=== PATIENT | female | born 1980 | race Caucasian/White ===

== ENCOUNTER 2020-12-10 02:47 | Emergency (ER) | payer SELFPAY ==
[2020-12-10] MEDS ORDERED: ONDANSETRON 4 MG/2 ML VIAL ONE (04:00)
[2020-12-10] MEDS ORDERED: MORPHINE 4 MG/ML SYR ONE (04:00)
[2020-12-10 04:25] LABS: Absolute Lymphocytes (CBC) 2.1 K/uL (0.7-4.9); Basophils % 0.8 % (0-1.3); Hematocrit 35.5 % (36.0-45.0); Lymphocytes % 18.9 % (15.3-44.8); MPV 8.7 fL (7.6-11.3); RBC Red Blood Cell Count 3.91 M/uL (3.86-4.86)
[2020-12-10 04:38] LABS: ALT/SGPT 22 U/L (12-78); Albumin 3.5 g/dL (3.4-5.0); Alkaline Phosphatase 77 U/L (45-117); BUN Blood Urea Nitrogen 15 mg/dL (7-18); Bicarbonate 26 mmol/L (21-32); Bilirubin Direct < 0.1 mg/dL (0-0.2); Bilirubin Total 0.1 mg/dL (0.2-1.0); Glucose Level 132 mg/dL (74-106); Lipase 82 U/L (73-393); Protein, Total 6.8 g/dL (6.4-8.2); Sodium Level 140 mmol/L (136-145)
[2020-12-10] MEDS ORDERED: HYDROMORPHONE HCL 2 MG/ML inj ONE (04:41)
[2020-12-10 04:44] LABS: AST/SGOT 13 U/L (15-37); Potassium 3.9 mmol/L (3.5-5.1)
[2020-12-10 04:56] LABS: Blood Morphology Comment NOT SEEN (NOT SEEN); Platelet Estimate ADEQ; White Blood Cell Scan OK (OK)
--- NOTE | 2020-12-10 05:03 | EDPHYS ---
Physician Documentation [facility] Name: Ryanne Lockwood Age: 40 yrs Sex: Female : 1980 Arrival Date: 12/10/2020 Time: 02:52 Bed 25 Private MD: ED Physician Kristine Cortez HPI: 12/10 03:31 This 40 yrs old Female presents to ER via Ambulatory with complaints of Flank ma2 Pain, Chest Pain > 30 y/o. 03:31 The patient complains of pain in the . Onset: The symptoms/episode began/occurred ma2 gradually, 1 day(s) ago. Associated signs and symptoms: Pertinent negatives: fever, hematuria, pain radiating to the lower extremities. Severity of pain: At its worst the pain was moderate in the emergency department the pain is unchanged. The patient has not experienced similar symptoms in the past. ruq abd pain constant severe. 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 - Social history:: Smoking status: Patient reports the use of cigarette tobacco products, smokes one-half pack cigarettes per day, Patient uses Patient/guardian denies using alcohol, street drugs, The patient lives with family. - Family history:: not pertinent. ROS: 03:31 Constitutional: Negative for fever, chills, and weight loss. ma2 03:31 All other systems are negative. Exam: 03:31 Constitutional: This is a well developed, well nourished patient who is awake, alert, ma2 and in no acute distress. Head/Face: Normocephalic, atraumatic. Eyes: Pupils equal round and reactive to light, extra-ocular motions intact. Lids and lashes normal. Conjunctiva and sclera are non-icteric and not injected. Cornea within normal limits. Periorbital areas with no swelling, redness, or edema. ENT: Nares patent. No nasal discharge, no septal abnormalities noted. Tympanic membranes are normal and external auditory canals are clear. Oropharynx with no redness, swelling, or masses, exudates, or evidence of obstruction, uvula midline. Mucous membranes moist. Neck: Trachea midline, no thyromegaly or masses palpated, and no cervical lymphadenopathy. Supple, full range of motion without nuchal rigidity, or vertebral point tenderness. No Meningismus. Chest/axilla: Normal chest wall appearance and motion. Nontender with no deformity. No lesions are appreciated. Cardiovascular: Regular rate and rhythm with a normal S1 and S2. No gallops, murmurs, or rubs. Normal PMI, no JVD. No pulse deficits. Respiratory: Lungs have equal breath sounds bilaterally, clear to auscultation and percussion. No rales, rhonchi or wheezes noted. No increased work of breathing, no retractions or nasal flaring. Back: No spinal tenderness. No costovertebral tenderness. Full range of motion. Skin: Warm, dry with normal turgor. Normal color with no rashes, no lesions, and no evidence of cellulitis. MS/ Extremity: Pulses equal, no cyanosis. Neurovascular intact. Full, normal range of motion. Neuro: Awake and alert, GCS 15, oriented to person, place, time, and situation. Cranial nerves II-XII grossly intact. Motor strength 5/5 in all extremities. Sensory grossly intact. Cerebellar exam normal. Normal gait. 03:31 Abdomen/GI: Inspection: abdomen appears normal, Bowel sounds: normal, Palpation: moderate abdominal tenderness, in the right upper quadrant, no appreciated organomegaly. Vital Signs: 02:54 BP 154 / 92 RA Sitting (auto/lg); Pulse 63 MON; Resp 20 S; Temp 97.6(O); Pulse Ox 100% bs2 on R/A; Weight 102.06 kg; Height 5 ft. 2 in. (157.48 cm); Pain 10/10; 03:46 BP 131 / 77; Pulse 64; Resp 18; Pulse Ox 100% on R/A; ms4 04:20 BP 146 / 77; Pulse 70; Resp 18; Pulse Ox 100% on R/A; Pain 10/10; ms4 05:20 BP 135 / 90; Pulse 78; Resp 18; Temp 97.6; Pulse Ox 96% on R/A; cc4 02:54 Body Mass Index 41.15 (102.06 kg, 157.48 cm) bs2 MDM: 03:06 Patient medically screened. ma2 03:31 Differential diagnosis: nephrolithiasis, UTI, pancreatitis, cholelithiasis. ma2 04:59 Data reviewed: vital signs, nurses notes. Counseling: I had a detailed discussion with mahendra the patient and/or guardian regarding: the historical points, exam findings, and any diagnostic results supporting the discharge/admit diagnosis, the presence of at least one elevated blood pressure reading (>120/80) during this emergency department visit, the need for outpatient follow up. Response to treatment: the patient's symptoms have resolved after treatment. ED course: Patient symptoms has resolved, vital signs within normal limits, did not develop any fever in the ER, her labs unremarkable except white count of 11,000, however no other component of SIRS. Ultrasound is done I reviewed the images and discussed with the technician chemical cleaning, she advised that there is gallbladder stone, no sonographic May, gallbladder wall is not thickened, no pericystic fluid, CBD is not dilated, I reviewed the pictures and agree with these findings. Images were sent to the radiologist, however report will not be available until the morning, given patient symptom has resolved at this point. Will discharge with diagnosis of cholelithiasis, with general surgery referral, pain control and antiemetic. I gave return precautions to return to ER anytime, and follow-up with PCP either way in the morning.. 12/10 03:14 Order name: Basic Metabolic Panel; Complete Time: 04:45 pr2 12/10 03:14 Order name: CBC with Diff; Complete Time: 04:59 pr2 12/10 03:14 Order name: Hepatic Function; Complete Time: 04:45 ma2 12/10 03:14 Order name: Lipase; Complete Time: 04:45 ma2 12/10 03:14 Order name: US Abdomen Limited pr2 12/10 04:35 Order name: CBC Smear Scan; Complete Time: 04:59 EDMS 12/10 03:14 Order name: IV Saline Lock; Complete Time: 03:48 ma2 12/10 03:14 Order name: Labs collected and sent; Complete Time: 03:48 ma2 12/10 03:14 Order name: Urine Dipstick-Ancillary (obtain specimen) [facility] 12/10 03:14 Order name: Urine Test (obtain specimen) ma2 Administered Medications: 03:37 Drug: morphine 4 mg Route: IVP; Site: left forearm; ms4 05:07 Follow up: Response: No adverse reaction; Pain is unchanged, physician notified kc4 03:37 Drug: Zofran (Ondansetron) 4 mg Route: IVP; Site: left forearm; ms4 05:06 Follow up: Response: No adverse reaction kc4 04:20 Drug: Dilaudid (HYDROmorphone) 1 mg Route: IVP; Site: left forearm; ms4 05:06 Follow up: Response: No adverse reaction kc4 05:20 Follow up: Response: No adverse reaction; Pain is decreased cc4 Disposition Summary: 12/10/20 05:02 Discharge Ordered Location: Home ma2 Condition: Stable ma2 Diagnosis - Other cholelithiasis without obstruction ma2 Followup: ma2 - With: - When: Tomorrow - Reason: If symptoms return, Continuance of care Discharge Instructions: - Discharge Summary Sheet ma2 - Cholelithiasis ma2 - Cholelithiasis, [id number] ma2 Forms: - Medication Reconciliation Form ma2 - Thank You Letter ma2 - Antibiotic Education ma2 - Prescription Opioid Use ma2 Prescriptions: - Zofran 4 mg Oral Tablet - take 1 tablet by ORAL route every 12 hours As needed; 20 tablet; Refills: 0, ma2 Product Selection Permitted - Diclofenac Sodium 75 mg Oral Tablet Sustained Release - take 1 tablet by ORAL route 2 times per day; 30 tablet; Refills: 0, Product ma2 Selection Permitted Signatures: Dispatcher [employer] Glen Liao PA PA [id number] Kristine Cortez MD MD ma2 Nuris Gaitan RN RN bs2 Malinda Parada RN RN ms4 Teressa Hancock4 Smita Lake RN cc4
--- NOTE | 2020-12-10 05:03 | ER ---
Nurse's Notes [facility] Name: Ryanne Lockwood Age: 40 yrs Sex: Female : 1980 Arrival Date: 12/10/2020 Time: 02:52 Bed 25 Private MD: Diagnosis: Other cholelithiasis without obstruction Presentation: 12/10 02:54 Chief complaint: Patient states: RUQ abd pain and chest pain, started 1 hr ago. bs2 Coronavirus screen: At this time, the client does not indicate any symptoms associated with coronavirus-19. Ebola Screen: No symptoms or risks identified at this time. Initial Sepsis Screen: Does the patient meet any 2 criteria? No. Patient's initial sepsis screen is negative. Does the patient have a suspected source of infection? No. Patient's initial sepsis screen is negative. Risk Assessment: Do you want to hurt yourself or someone else? Patient reports no desire to harm self or others. Onset of symptoms was December 10, 2020. 02:54 Method Of Arrival: Ambulatory bs2 02:54 Acuity: HUI 3 bs2 Triage Assessment: 02:58 General: Appears in no apparent distress. uncomfortable, obese, well groomed, well bs2 developed, well nourished, Behavior is calm, cooperative, appropriate for age. Pain: Complains of pain in right lateral anterior chest Pain currently is 10 out of 10 on a pain scale. Pain began suddenly. Cardiovascular: Chest pain is described as diffuse, "worst pain of my life". 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 - Social history:: Smoking status: Patient reports the use of cigarette tobacco products, smokes one-half pack cigarettes per day, Patient uses Patient/guardian denies using alcohol, street drugs, The patient lives with family. - Family history:: not pertinent. Screenin:46 Abuse screen: Denies threats or abuse. Denies injuries from another. Nutritional ms4 screening: No deficits noted. Tuberculosis screening: No symptoms or risk factors identified. Fall Risk None identified. Assessment: 03:45 Reassessment: Patient appears in no apparent distress at this time. No changes from ms4 previously documented assessment. Patient and/or family updated on plan of care and expected duration. Pain level reassessed. Patient is alert, oriented x 3, equal unlabored respirations, skin warm/dry/pink. General: Appears in no apparent distress. Behavior is calm, cooperative. Pain: Complains of pain in right upper quadrant and chest and right lateral anterior chest Pain does not radiate. Neuro: No deficits noted. Cardiovascular: No deficits noted. Respiratory: No deficits noted. GI: Reports upper abdominal pain, nausea. 04:50 Reassessment: Patient appears in no apparent distress at this time. No changes from ms4 previously documented assessment. Patient and/or family updated on plan of care and expected duration. Pain level reassessed. Patient is alert, oriented x 3, equal unlabored respirations, skin warm/dry/pink. Reassessment: patient sleeping at this time. report given to jayme alfaro. Vital Signs: 02:54 BP 154 / 92 RA Sitting (auto/lg); Pulse 63 MON; Resp 20 S; Temp 97.6(O); Pulse Ox 100% bs2 on R/A; Weight 102.06 kg; Height 5 ft. 2 in. (157.48 cm); Pain 10/10; 03:46 BP 131 / 77; Pulse 64; Resp 18; Pulse Ox 100% on R/A; ms4 04:20 BP 146 / 77; Pulse 70; Resp 18; Pulse Ox 100% on R/A; Pain 10/10; ms4 05:20 BP 135 / 90; Pulse 78; Resp 18; Temp 97.6; Pulse Ox 96% on R/A; cc4 02:54 Body Mass Index 41.15 (102.06 kg, 157.48 cm) bs2 ED Course: 02:52 Patient arrived in ED. bp1 02:58 Triage completed. bs2 02:58 Arm band placed on left wrist. bs2 03:06 Kristine Cortez MD is Attending Physician. ma2 03:46 No provider procedures requiring assistance completed. Inserted saline lock: 22 gauge ms4 in left forearm, using aseptic technique. Blood collected. Patient maintains SpO2 saturation greater than 95% on room air. 03:48 US Abdomen Limited In Process Unspecified. EDMS 04:55 Smita Lake, RN is Primary Nurse. cc4 05:02 Garret Morton MD is Referral Physician. ma2 05:20 Patient has correct armband on for positive identification. Bed in low position. Call cc4 light in reach. Side rails up X 1. Pulse ox on. NIBP on. 05:20 IV discontinued, intact, bleeding controlled, No redness/swelling at site. Pressure cc4 dressing applied. Administered Medications: 03:37 Drug: morphine 4 mg Route: IVP; Site: left forearm; ms4 05:07 Follow up: Response: No adverse reaction; Pain is unchanged, physician notified kc4 03:37 Drug: Zofran (Ondansetron) 4 mg Route: IVP; Site: left forearm; ms4 05:06 Follow up: Response: No adverse reaction kc4 04:20 Drug: Dilaudid (HYDROmorphone) 1 mg Route: IVP; Site: left forearm; ms4 05:06 Follow up: Response: No adverse reaction kc4 05:20 Follow up: Response: No adverse reaction; Pain is decreased cc4 Outcome: 05:02 Discharge ordered by . ma2 05:20 Discharged to home with family. cc4 05:20 Condition: improved 05:20 Discharge instructions given to patient, family, Instructed on discharge instructions, follow up and referral plans. medication usage, Demonstrated understanding of instructions, follow-up care, medications, Prescriptions given X 2. 05:49 Patient left the ED. cc4 Signatures: Dispatcher [employer] EDKS Kristine Cortez MD MD ma2 Beatriz Guzman Bridget, RN RN bs2 Malinda Parada RN RN ms4 Teressa Hancock kc4 Smita Lake, RN RN cc4
[2020-12-10 05:59] VITALS: TEMP 97.6
[2020-12-10 06:12] VITALS: BP 135/90; O2SAT 96
--- NOTE | 2020-12-10 08:34 | RAD REPORT ---
EXAM DESCRIPTION: US - Abdomen Exam Limited - 12/10/2020 3:48 am CLINICAL HISTORY: ruq abd pain Abdominal pain COMPARISON: No comparisons FINDINGS: The gallbladder demonstrates several gallstones in the gallbladder. No pericholecystic flu id or gallbladder wall thickening. The common bile duct is normal measuring 3 mm. The liver demonstrates no findings of intrahepatic biliary dilatation. IMPRESSION: Cholelithiasis.
== END 2020-12-10 05:49 | disposition home or self-care (01) ==
LOC: ER 02:47
DX: K80.80 Other cholelithiasis without obstruction (principal); F17.210 Nicotine dependence, cigarettes, uncomplicated; Z88.0 Allergy status to penicillin
CPT/HCPCS: 36415; 76705; 80048; 80076; 83690; 85025; 93005; 96374; 96375; 99284; J1170; J2405

== ENCOUNTER 2020-12-20 14:41 | Emergency (ER) | payer SELFPAY ==
[2020-12-20] MEDS ORDERED: MORPHINE 4 MG/ML SYR ONE (16:06)
[2020-12-20] MEDS ORDERED: ONDANSETRON 4 MG/2 ML VIAL ONE (16:06)
--- NOTE | 2020-12-20 16:10 | RAD REPORT ---
EXAM DESCRIPTION: CT - Abdomen Pelvis W Contrast - 12/20/2020 3:56 pm CLINICAL HISTORY: Abdominal pain COMPARISON: none. TECHNIQUE: Computed axial tomography of the abdomen pelvis was obtained. 100 cc Isovue-300 was admin istered intravenously. Oral contrast was not requested which limits evaluation of bowel. All CT scans are performed using dose optimization technique as appropriate and may include automated exposure control or mA/KV adjustment according to patient size. FINDINGS: 3 x 2 centimeter fluid collection within the gallbladder fossa. Cholecystectomy Stranding within the anterior subcutaneous fat periumbilical region The liver, spleen, pancreas, adrenal and kidneys appear unremarkable. There is no evidence of diverticulitis. Normal appendix A few areas of subsegmental atelectasis within the lung bases 2 centimeter right and left ovarian cyst without significant free fluid IMPRESSION: 3 x 2 centimeter fluid collection within the gallbladder fossa may represent a small hem atoma or biloma. Stranding within the anterior subcutaneous fat periumbilical region indicative of inflammation
[2020-12-20] MEDS ORDERED: Levofloxacin 750mg IV 750 MG/150 ML BAG IV ONE (17:20)
[2020-12-20 17:30] LABS: Absolute Lymphocytes (CBC) 1.8 K/uL (0.7-4.9); Basophils % 0.6 % (0-1.3); Hematocrit 32.8 % (36.0-45.0); Lymphocytes % 19.1 % (15.3-44.8); MPV 7.1 fL (7.6-11.3); RBC Red Blood Cell Count 3.61 M/uL (3.86-4.86)
[2020-12-20 17:43] LABS: BUN Blood Urea Nitrogen 8 mg/dL (7-18); Bicarbonate 26 mmol/L (21-32); Glucose Level 92 mg/dL (74-106); Potassium 3.8 mmol/L (3.5-5.1); Sodium Level 139 mmol/L (136-145)
--- NOTE | 2020-12-20 19:44 | ER ---
Nurse's Notes [facility] Name: Ryanne Lockwood Age: 40 yrs Sex: Female : 1980 Arrival Date: 12/20/2020 Time: 14:45 Bed 20 Private MD: Diagnosis: Surgical site pain -purulent fluid drainage and periumbilical pain Presentation: 12/20 14:49 Chief complaint: Patient states: Had a cholecystectomy on 12/11/[address] Morton jl7 Noticed abdominal swelling and pus draining from my belly button yesterday. Denies fever, N/V/D. Coronavirus screen: At this time, the client does not indicate any symptoms associated with coronavirus-19. Ebola Screen: No symptoms or risks identified at this time. Initial Sepsis Screen: Does the patient meet any 2 criteria? No. Patient's initial sepsis screen is negative. Does the patient have a suspected source of infection? No. Patient's initial sepsis screen is negative. Risk Assessment: Do you want to hurt yourself or someone else? Patient reports no desire to harm self or others. Onset of symptoms was December 19, 2020. 14:49 Method Of Arrival: Ambulatory [facility] 14:49 Acuity: UHI 3 jl7 Triage Assessment: 14:51 General: Appears in no apparent distress. uncomfortable, Behavior is calm, cooperative, jl7 appropriate for age. Pain: Complains of pain in abdomen Pain currently is 4 out of 10 on a pain scale. GI: Patient currently denies constipation, diarrhea, nausea, vomiting. 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 - Social history:: Smoking status: Patient reports the use of cigarette tobacco products, smokes one-half pack cigarettes per day. Screenin:00 Abuse screen: Denies threats or abuse. Denies injuries from another. Nutritional bp screening: No deficits noted. Tuberculosis screening: No symptoms or risk factors identified. Fall Risk None identified. Assessment: 15:00 General: SEE TRIAGE NOTE. bp 16:00 Reassessment: No changes from previously documented assessment. Patient and/or family bp updated on plan of care and expected duration. Pain level reassessed. Patient is alert, oriented x 3, equal unlabored respirations, skin warm/dry/pink. 18:00 Reassessment: No changes from previously documented assessment. Patient and/or family bp updated on plan of care and expected duration. Pain level reassessed. PROVIDER AT B/S. 19:30 Reassessment: Patient appears in no apparent distress at this time. Abdominal cc4 incisional lines approx. 1 cm in length with staple intact x 3/redness noted no drainage; approx 1 cm incisional line of umbilicus intact x 1 satple with redness \T\ no drainage noted APT; each incisional lines dressed with triple antibiotic ointment \T\ folded 4 x 4 gauze, jamar. well; voices no complaints; VSS. 19:30 GI: Bowel sounds present X 4 quads. cc4 19:30 GI: Abd is soft X 4 quads. cc4 Vital Signs: 14:49 BP 133 / 84; Pulse 86; Resp 17; Temp 98.1; Pulse Ox 100% ; Weight 106.59 kg; Height 5 jl7 ft. 3 in. (160.02 cm); Pain 4/10; 16:00 BP 127 / 79; Pulse 82; Resp 16; Pulse Ox 100% ; bp 17:00 BP 124 / 79; Pulse 82; Resp 17; Pulse Ox 100% ; bp 18:00 BP 111 / 65; Pulse 85; Resp 16; Pulse Ox 100% ; bp 19:30 BP 131 / 81; Pulse 80; Resp 20; Temp 97.9; Pulse Ox 100% ; cc4 14:49 Body Mass Index 41.63 (106.59 kg, 160.02 cm) jl7 ED Course: 14:45 Patient arrived in ED. as 14:51 Triage completed. jl7 14:51 Arm band placed on right wrist. jl7 14:55 Mason Werner, MENDEL is Primary Nurse. bp 14:56 Andi Causey MD is Attending Physician. kdr 15:00 Patient has correct armband on for positive identification. Bed in low position. Call bp light in reach. Side rails up X2. 15:41 Inserted saline lock: 22 gauge in right forearm, using aseptic technique. em1 15:55 CT Abd/Pelvis - IV Contrast Only In Process Unspecified. EDMS 19:30 IV discontinued, intact, bleeding controlled, No redness/swelling at site. Pressure cc4 dressing applied. 19:43 Garret Morton MD is Referral Physician. kdr 20:05 Staple removal x 3 of umbilicus incisional line. cc4 Administered Medications: 15:30 Drug: morphine 4 mg Route: IVP; Site: right forearm; bp 17:14 Follow up: Response: No adverse reaction bp 19:30 Follow up: Response: No adverse reaction; Pain is decreased cc4 15:30 Drug: Zofran (Ondansetron) 4 mg Route: IVP; Site: right forearm; bp 17:14 Follow up: Response: No adverse reaction bp 19:30 Follow up: Response: No adverse reaction cc4 17:13 Drug: LevaQUIN (levofloxacin) 750 mg Route: IVPB; Site: right forearm; bp 19:30 Follow up: Response: No adverse reaction; IV Intake: 100ml cc4 Intake: 19:30 IV: 100ml; Total: 100ml. cc4 Outcome: 19:30 Discharged to home ambulatory. cc4 19:30 Condition: good 19:30 Discharge instructions given to patient, Instructed on discharge instructions, follow up and referral plans. medication usage, Demonstrated understanding of instructions, follow-up care, medications, Prescriptions given X 2. 19:44 Discharge ordered by . kdr 20:10 Patient left the ED. cc4 Signatures: Dispatcher [employer] EDMS Andi Causey MD MD kdr Martinez, Amelia as Martinez, Eric em1 Farnaz Nam RN RN jl7 Mason Werner RN RN Smita Sparrow RN RN cc4
--- NOTE | 2020-12-20 19:45 | EDPHYS ---
Physician Documentation [facility] Name: Ryanne Lockwood Age: 40 yrs Sex: Female : 1980 Arrival Date: 12/20/2020 Time: 14:45 Bed 20 Private MD: ED Physician Andi Causey HPI: 12/20 16:42 This 40 yrs old Female presents to ER via Ambulatory with complaints of kdr Abdominal Swelling, umbilical discharge. 16:42 The patient presents with abdominal pain in the epigastric area, in the right upper kdr quadrant, abdominal distention. Onset: The symptoms/episode began/occurred 2 day(s) ago. The symptoms do not radiate. Associated signs and symptoms: none. The symptoms are described as achy, crampy, dull, vague. Modifying factors: The symptoms are alleviated by remaining still, the symptoms are aggravated by coughing, breathing deeply. Patient had a cholecystectomy on the eighth of this month. The surgeon was Dr. Morton. Yesterday she noted some purulent drainage from her umbilicus. She also felt as if her abdomen was more distended. She denies any fever chills nausea or vomiting. 19:46 Severity of pain: At its worst the pain was mild. The patient has not experienced kdr similar symptoms in the past. 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 - Social history:: Smoking status: Patient reports the use of cigarette tobacco products, smokes one-half pack cigarettes per day. ROS: 19:46 Constitutional: Negative for fever, chills, and weight loss, Eyes: Negative for injury, kdr pain, redness, and discharge, ENT: Negative for injury, pain, and discharge, Neck: Negative for injury, pain, and swelling, Cardiovascular: Negative for chest pain, palpitations, and edema, Respiratory: Negative for shortness of breath, cough, wheezing, and pleuritic chest pain, Back: Negative for injury and pain, : Negative for injury, bleeding, discharge, and swelling, MS/Extremity: Negative for injury and deformity, Skin: Negative for injury, rash, and discoloration, Neuro: Negative for headache, weakness, numbness, tingling, and seizure activity. Psych: Negative for depression, anxiety, suicide ideation, homicidal ideation, and hallucinations, Allergy/Immunology: Negative for hives, rash, and allergies, Endocrine: Negative for neck swelling, polydipsia, polyuria, polyphagia, and marked weight changes, Hematologic/Lymphatic: Negative for swollen nodes, abnormal bleeding, and unusual bruising. 19:46 Abdomen/GI: Positive for abdominal pain, The pain is periumbilical and umbilical with a small amount of drainage prior to arrival from her umbilicus wound, Negative for nausea, vomiting, and diarrhea, abdominal cramps, abdominal distension, anorexia, dysphagia, hematemesis, black/tarry stool, rectal pain, rectal bleeding. Exam: 19:46 Constitutional: This is a well developed, well nourished patient who is awake, alert, kdr and in no acute distress. Head/Face: Normocephalic, atraumatic. Eyes: Pupils equal round and reactive to light, extra-ocular motions intact. Lids and lashes normal. Conjunctiva and sclera are non-icteric and not injected. Cornea within normal limits. Periorbital areas with no swelling, redness, or edema. Neck: Trachea midline, no thyromegaly or masses palpated, and no cervical lymphadenopathy. Supple, full range of motion without nuchal rigidity, or vertebral point tenderness. No Meningismus. Chest/axilla: Normal chest wall appearance and motion. Nontender with no deformity. No lesions are appreciated. Cardiovascular: Regular rate and rhythm with a normal S1 and S2. No gallops, murmurs, or rubs. Normal PMI, no JVD. No pulse deficits. Respiratory: Lungs have equal breath sounds bilaterally, clear to auscultation and percussion. No rales, rhonchi or wheezes noted. No increased work of breathing, no retractions or nasal flaring. Back: No spinal tenderness. No costovertebral tenderness. Full range of motion. Skin: Warm, dry with normal turgor. Normal color with no rashes, no lesions, and no evidence of cellulitis. MS/ Extremity: Pulses equal, no cyanosis. Neurovascular intact. Full, normal range of motion. Neuro: Awake and alert, GCS 15, oriented to person, place, time, and situation. Cranial nerves II-XII grossly intact. Motor strength 5/5 in all extremities. Sensory grossly intact. Cerebellar exam normal. Normal gait. Psych: Awake, alert, with orientation to person, place and time. Behavior, mood, and affect are within normal limits. 19:46 Abdomen/GI: Inspection: obese Patient has multiple puncture sites from the cholecystectomy. The umbilical site is slightly red but minimal erythema and drainage. I was unable to express any purulent drainage from the wound. Vital Signs: 14:49 BP 133 / 84; Pulse 86; Resp 17; Temp 98.1; Pulse Ox 100% ; Weight 106.59 kg; Height 5 jl7 ft. 3 in. (160.02 cm); Pain 4/10; 16:00 BP 127 / 79; Pulse 82; Resp 16; Pulse Ox 100% ; bp 17:00 BP 124 / 79; Pulse 82; Resp 17; Pulse Ox 100% ; bp 18:00 BP 111 / 65; Pulse 85; Resp 16; Pulse Ox 100% ; bp 19:30 BP 131 / 81; Pulse 80; Resp 20; Temp 97.9; Pulse Ox 100% ; cc4 14:49 Body Mass Index 41.63 (106.59 kg, 160.02 cm) jl7 MDM: 19:44 Patient medically screened. kdr 19:46 Data reviewed: vital signs, nurses notes, lab test result(s), radiologic studies. kdr Counseling: I had a detailed discussion with the patient and/or guardian regarding: the historical points, exam findings, and any diagnostic results supporting the discharge/admit diagnosis, lab results, radiology results, the need for outpatient follow up. Physician consultation: Garret Morton MD and will see patient in office, tomorrow. 12/20 16:39 Order name: CBC with Diff; Complete Time: 17:53 kdr 12/20 16:39 Order name: Chem 7; Complete Time: 17:53 kdr 12/20 15:16 Order name: CT Abd/Pelvis - IV Contrast Only; Complete Time: 16:39 kdr Administered Medications: 15:30 Drug: morphine 4 mg Route: IVP; Site: right forearm; bp 17:14 Follow up: Response: No adverse reaction bp 19:30 Follow up: Response: No adverse reaction; Pain is decreased cc4 15:30 Drug: Zofran (Ondansetron) 4 mg Route: IVP; Site: right forearm; bp 17:14 Follow up: Response: No adverse reaction bp 19:30 Follow up: Response: No adverse reaction cc4 17:13 Drug: LevaQUIN (levofloxacin) 750 mg Route: IVPB; Site: right forearm; bp 19:30 Follow up: Response: No adverse reaction; IV Intake: 100ml cc4 Disposition Summary: 12/20/20 19:44 Discharge Ordered Location: Home kdr Problem: an ongoing problem kdr Symptoms: have improved kdr Condition: Stable kdr Diagnosis - Surgical site pain -purulent fluid drainage and periumbilical pain kdr Followup: kdr - With: Garret Morton MD - When: Tomorrow - Reason: If symptoms return, Further diagnostic work-up, Recheck today's complaints, Continuance of care, Re-evaluation by your physician Discharge Instructions: - Discharge Summary Sheet kdr - Abdominal Pain, Adult, [id number] kdr - Wound Infection, [id number] kdr - Wound Closure Removal, Care After kdr - Sutures, Chris, or Adhesive Wound Closure, [id number] kdr Forms: - Medication Reconciliation Form kdr - Thank You Letter kdr - Antibiotic Education kdr - Prescription Opioid Use kdr Prescriptions: - Tramadol 50 mg Oral Tablet - take 1 tablet by ORAL route every 8 hours as needed; 12 tablet; Refills: 0, kdr Product Selection Permitted - Bactrim DS 800-160 mg Oral Tablet - take 1 tablet by ORAL route every 12 hours for 10 days; 20 tablet; Refills: 0, kdr Product Selection Permitted 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
[2020-12-20 20:18] VITALS: O2SAT 100
[2020-12-20 20:23] VITALS: BP 131/81; TEMP 97.9
== END 2020-12-20 20:10 | disposition home or self-care (01) ==
LOC: ER 14:41
DX: G89.18 Other acute postprocedural pain (principal); Z90.49 Acquired absence of other specified parts of digestive tract; F17.210 Nicotine dependence, cigarettes, uncomplicated; Z88.0 Allergy status to penicillin
CPT/HCPCS: 36415; 74177; 80048; 85025; 96374; 96375; 99284; J2405; Q9967

== ENCOUNTER 2022-10-31 11:08 | Emergency (ER) | payer OTHER, SELFPAY ==
--- OUTSIDE RECORDS SUMMARY | 2022-10-31 11:11 | XMS REPORT | Clinical Summary ---
:1980 Author Organization [facility] Address [address] [place] [id number] Care Team Providers Name Role Phone Unavailable Primary Care Provider Unavailable Allergies Not on File Medications Not on file Active Problems Not on file Social History Tobacco Use Types Packs/Day Years Used Date Smoking Tobacco: Never Assessed Sex Assigned at Date Recorded Not on file Last Filed Vital Signs Not on file Plan of Treatment Not on file Results Not on fileafter 10/31/2021
--- OUTSIDE RECORDS SUMMARY | 2022-10-31 11:12 | XMS REPORT | Continuity of Care Document ---
:[address] [facility] t Address [address] [facility] [address] [place] [address] Care Team Providers Name Role Phone Chicho Ramsay Attending Clinician Chicho ELLIS Attending Clinician Unavailable Jeannette Pimentel LCSW Attending Clinician [phone] This patient has no known problems. Allergies, Adverse Reactions, Alerts Allergy Allergy Status Severity Reaction(s) Onset Inactive Treating Comm ents Source Name Type Date Date Clinician Penicill Propensi Active Shortness of 2019-03 Univers in ty to Breath 2-14 ity of adverse 00:00: [place] reaction 00 [facility] PENICILL DRUG Active SOB 2019-03 Univers IN INGREDI 2-14 ity of 00:00: [address] NO KNOWN Drug Active Univers ALLERGIE Class ity of [facility] Social History Social Habit Start Date Stop Date Quantity Comments Source Exposure to Not sure [facility] SARS-CoV-2 (event) Medica l Branch Sex Assigned At [birth year] [facility] 00:00:00 00:00:00 MD [facility] Smoking Status Start Date Stop Date Source Unknown if ever smoked [facility] Medications Ordered Filled Start Stop Current Ordering Indication Dosage Frequency Signature Comments Components Source Medication Medication Date Date Medication? Clinician (SIG) Name Name doxycycline 2019-03 No 100mg 100 mg, U nivers hyclate 2-15 12-15 Oral, ity of (Vibramycin 07:30: 06[place]37 [place] capsule 00 :00 dose, Tue Medic al 100 mg 02/18/20 Branch at 0130, RADHA
Re ason for Anti-Infec tive: Empiric Therapy for Suspected Infection< br>Empiric Therapy Site: Pelvic
Duration of therapy: 7 days gentamicin 2019-03- No 240mg 240 mg, Un sandy injection 2-15 12-15 Intramuscu ity of 240 mg 07:30: 06:33 [place] 1 dose, Medical Tue Branch 02/18/20 at 0130, RADHA
Re ason for Anti-Infec tive: Empiric Therapy for Suspected Infection< br>Empiric Therapy Site: Pelvic
Duration of therapy: 72 hours NaCl 0.9% 2019-03- No 1000mL at 999 Uni vers (NS) bolus 2-15 12-15 mL/hr, ity of infusion 05:30: 06:51 1,000 mL, [place] as 1,000 mL 00 :00 IV Medical Infusion, Branch ONCE, 1 dose, [facility] 02/17/20 at 2330, STAT ketorolac 2019-03- No 30mg 30 mg, Unive rs (TORADOL) 2-15 12-15 Slow IV ity of injection 05:30: 04:51 Push, [place] 30 mg 00 :00 ONCE, 1 Medical dose, [facility] Branch 02/17/20 at 2330, RADHA
Fa culty member approving Restricted medication : Chicho ELLIS metoclopram 2019-03- No 10mg 10 mg, Uni vers dereck HCl 2-15 12-15 Slow IV ity of (REGLAN) 05:30: 04:51 Push, [place] injection 00 :00 ONCE, 1 Medical 10 mg dose, Mon Branch 02/17/20 at 2330, RADHA diphenhydrA 2019-03- No 25mg 25 mg, Uni vers MINE 2-15 12-15 Slow IV ity of (BENADRYL) 05:30: 04:51 Push, [place] injection 00 :00 ONCE, 1 Medical 25 mg dose, Mon Branch 02/17/20 at 2330, STAT ibuprofen 2019-03 Yes [id number] 600mg Take 1 U nivers 600 mg 2-15 tablet by ity of tablet 00:00: mouth [place] 00 every 6 Medical (six) Branch hours as needed for Pain (scale 4-6). doxycycline 2019-03 Yes [id number] 100mg Take 1 Univers hyclate 100 2-15 capsule by it y of mg capsule 00:00: mouth 2 [place] 00 (two) Medical times Branch daily. ibuprofen 2019-03 Yes [id number] 600mg Take 1 U nivers 600 mg 2-15 tablet by ity of tablet 00:00: mouth [place] 00 every 6 Medical (six) Branch hours as needed for Pain (scale 4-6). doxycycline 2019-03 Yes [id number] 100mg Take 1 Univers hyclate 100 2-15 capsule by it y of mg capsule 00:00: mouth [place] 00 (two) Medical times Branch daily. ibuprofen 2019-03 Yes [id number] 600mg Take 1 U nivers 600 mg 2-15 tablet by ity of tablet 00:00: mouth [place] 00 every 6 Medical (six) Branch hours as needed for Pain (scale 4-6). doxycycline 2019-03 Yes [id number] 100mg Take 1 Univers hyclate 100 2-15 capsule by it y of mg capsule 00:00: mouth [place] 00 (two) Medical times Branch daily. ibuprofen 2019-03 Yes [id number] 600mg Take 1 U nivers 600 mg 2-15 tablet by ity of tablet 00:00: mouth [place] 00 every 6 Medical (six) Branch hours as needed for Pain (scale 4-6). doxycycline 2019-03 Yes [id number] 100mg Take 1 Univers hyclate 100 2-15 capsule by it y of mg capsule 00:00: mouth [place] 00 (two) Medical times Branch daily. Vital Signs Vital Name Observation Time Observation Value Comments Source Systolic blood 2020-04-27 00:26:00 136 mm[Hg] [facility] Diastolic blood 2020-04-27 00:26:00 92 mm[Hg] [facility] Heart rate 2020-04-27 00:26:00 92 /min [facility] Body temperature 2020-04-27 00:26:00 36.61 Dee [facility] Respiratory rate 2020-04-27 00:26:00 14 /min [facility] Body height 2020-04-27 00:26:00 160 cm [facility] Body weight 2020-04-27 00:26:00 113.399 kg [facility] [place] [facility] BMI 2020-04-27 00:26:00 44.29 kg/m2 [facility] [place] [facility] Oxygen saturation in 2020-04-27 00:26:00 98 /min University of Arterial blood by [facility] natalee Pulse oximetry Branch Systolic blood 2020-04-26 20:06:00 132 mm[Hg] Univer sity of pressure [place] [facility] Diastolic blood 2020-04-26 20:06:00 92 mm[Hg] Unive rsity of pressure [place] [facility] Heart rate 2020-04-26 20:06:00 96 /min [facility] [place] [facility] Body temperature 2020-04-26 20:06:00 37 Dee Univ [facility] [place] [facility] Respiratory rate 2020-04-26 20:06:00 20 /min [facility] [place] [facility] Body weight 2020-04-26 20:06:00 108.863 kg [facility] [place] [facility] BMI 2020-04-26 20:06:00 43.90 kg/m2 [facility] [place] [facility] Oxygen saturation in 2020-04-26 20:06:00 100 /min University of Arterial blood by [facility] Pulse oximetry Branch Systolic blood 2020-02-18 06:00:00 139 mm[Hg] Univer sity of pressure [place] [facility] Diastolic blood 2020-02-18 06:00:00 73 mm[Hg] Unive rsity of pressure [place] [facility] Heart rate 2020-02-18 06:00:00 78 /min [facility] [place] [facility] Respiratory rate 2020-02-18 06:00:00 20 /min [facility] [place] [facility] Oxygen saturation in 2020-02-18 06:00:00 97 /min University of Arterial blood by [facility] natalee Pulse oximetry Branch Body temperature 2020-02-18 02:40:00 36.72 Dee [facility] [place] [facility] Body height 2020-02-18 02:40:00 157.5 cm [facility] [place] [facility] Body weight 2020-02-18 02:40:00 104.327 kg [facility] [place] [facility] BMI 2020-02-18 02:40:00 42.07 kg/m2 [facility] [place] [facility] Procedures Procedure Date / Time Performed Performing Clinician [place] e POCT TEST 2020-02-18 02:50:[address] [facility] URINALYSIS 2020-02-18 02:47:00 Anna Kumar [facility] NOTICE OF PRIVACY 2020-02-18 02:30:20 Doctor Unassigned, No Univ [facility] PRACTICES Name [facility] CONSENT/REFUSAL FOR 2020-02-18 02:30:08 Doctor Unassigned, No [facility] AND Name Medical Branch TREATMENT Encounters Start End Encounter Admission Attending Care Care Encounter Source Date/Time Date/Time Type Type Clinicians Facility Department ID 2020-04-26 2020-04-26 Emergency Chicho Ellis [facility] [[email or web address]] [id number] Univers 18:26:00 19:02:00 Erica Marsh [id number] i ty [facility] [id number] [facility] [id number] [facility] 084 Branch 2020-04-26 2020-04-26 Emergency X Chicho ELLIS [facility] [[email or web address]] ERT [id number] Univers 18:18:00 18:18:00 ity of [facility] 2020-04-26 2020-04-26 Emergency TRAUMA [id number] Univers 14:07:00 14:16:00 CENTER [id number] it y of [id number] [facility] [id number] [facility] 014 Branch 2020-04-26 2020-04-26 Emergency X [facility] [[email or web address]] ERT [id number] Univers 14:07:00 14:16:00 ity of [facility] 2020-04-26 2020-04-26 Case Colunga-Kov TRAUMA [id number] Univers 00:00:00 00:00:00 Management ach, CENTER [id number] ity [id number] [id number] [facility] 014 Branch 2020-02-17 2020-02-18 Emergency Chicho Ellis [facility] [[email or web address]] [id number] Univers 20:48:00 01:02:00 Erica Marsh [id number] i ty nevaeh MarquezPreston [id number] [facility] [id number] [address] 2020-02-17 2020-02-17 Emergency X [facility] [[email or web address]] ERT [id number] Univers 20:29:00 20:29:00 ity [facility] Results Test Description Test Time Test Comments Results Result Comments Source URINALYSIS 2020-02-18 03:46:00 Test Item Value Reference Range Interpretation Comme nts APPEARANCE (test code = Hazy Clear A 5900790391) COLOR (test code = 2402016205) Yellow Yellow PH (test code = 7793489668) 4.8-8.0 SP GRAVITY (test code = 1.003-1.030 2175911416) GLU U QUAL (test code = Normal Normal 1745208825) BLOOD (test code = 8308805525) Negative Negative KETONES (test code = 8499855511) Negative Negative PROTEIN (test code = 2887-8) Negative Negative UROBILIN (test code = Normal Normal 2360966128) BILIRUBIN (test code = Negative Negative 4778207276) NITRITE (test code = 0453697130) Negative Negative LEUK JT (test code = 75/uL Negative A 3796024217) RBC/HPF (test code = 1349180851) See_Comment [Automated message] The system which ge nerated this result transmit sharmaine reference range: 0 - 3 HP F. The reference range was not used to interpret th is result as normal/abnormal . WBC/HPF (test code = 8491892749) See_Comment [Automated message] The system which ge nerated this result transmit sharmaine reference range: 0 - 5 HP F. The reference range was not used to interpret th is result as normal/abnormal . BACTERIA (test code = Few Negative A 5825989602) MUCOUS (test code = 0657453818) Slight Negative LPF A SQ EPITH (test code = HPF 6501234627) WBC CLUMPS (test code = <1 See_Comment [Au tomated message] The 7082321714) system which LIFEMODELER nerated this result transmit sharmaine reference range: <=1 HPF. The reference range was not u sed to interpret this result as normal/abnormal . Lab Interpretation (test code = Abnormal 51798-8) [id number]50[facility]00 Test Item Value Reference Range Interpretation Comments POCT PREG (test code = 1605) negative On board controls acceptable with positive C Line (test code = 3574) POCT PREG LOT # (test code = 3575) [id number] POCT PREG TEST DATE (test 07/03/2021 code = 3576) Lab Interpretation (test code = Normal 91953-9) [facility]
[2022-10-31 13:08] LABS: Absolute Lymphocytes (CBC) 1.5 K/uL (0.7-4.9); Hematocrit 42.1 % (36.0-45.0); Lymphocytes % 18.5 % (15.3-44.8); MCV 92.9 fL (80-100); MPV 7.7 fL (7.6-11.3); Platelets 293 thou/uL (152-406); RBC Red Blood Cell Count 4.54 M/uL (3.86-4.86)
[2022-10-31 13:23] LABS: Albumin 3.7 g/dL (3.4-5.0); Bilirubin Total 0.3 mg/dL (0.2-1.0); Potassium 3.7 mEq/L (3.5-5.1); Protein, Total 7.6 g/dL (6.4-8.2)
[2022-10-31] MEDS ORDERED: ONDANSETRON 4 MG/2 ML VIAL ONE (13:28)
[2022-10-31] MEDS ORDERED: NA CHLORIDE 0.9% 1,000 ML ONE (13:28)
[2022-10-31] MEDS ORDERED: KETOROLAC 30 MG/ML INJ ONE (13:28)
--- NOTE | 2022-10-31 13:55 | RAD REPORT ---
EXAM DESCRIPTION: CTAbdomen Pelvis W Contrast - 10/31/2022 1:40 pm CLINICAL HISTORY: Abdominal pain. ABD PAIN COMPARISON: Abdomen Pelvis W Contrast dated 12/20/2020 TECHNIQUE: Biphasic CT imaging of the abdomen and pelvis was performed with 100 ml non-ionic IV cont rast. All CT scans are performed using dose optimization technique as appropriate and may include automated exposure control or mA/KV adjustment according to patient size. FINDINGS: The lung bases are clear.Cholecystectomy clips. The liver, spleen, pancreas, adrenal glands and kidneys are within normal limits. No bowel obstruction, free air, free fluid or abscess. The appendix is normal. No evidence of signi ficant lymphadenopathy. No suspicious bony findings. IMPRESSION: No acute intra-abdominal or pelvic finding.
[2022-10-31 14:17] LABS: Specific Gravity 1.007 (1.005-1.030)
[2022-10-31 14:19] LABS: Specific Gravity 1.007 (1.005-1.030); Urine Bacteria None Seen /HPF (<20); Urine Bilirubin NEGATIVE (Negative); Urine Blood Negative (Negative); Urine Clarity Extremely Turbid (Clear); Urine Color Colorless (Yellow); Urine Glucose NEGATIVE (Negative); Urine Protein NEGATIVE (Negative); Urine RBC <5 /HPF (None Seen); Urine Urobilinogen Normal (Normal)
--- NOTE | 2022-10-31 14:33 | ER ---
Nurse's Notes [facility] Name: Ryanne Lockwood Age: 42 yrs Sex: Female : 1980 Arrival Date: 10/31/2022 Time: 11:08 Bed 9 Private MD: Diagnosis: Lower abdominal pain, unspecified Presentation: 10/31 11:35 Chief complaint: Patient states: "For the past 3 days, I have this aching pain on my mb9 low right groin and radiates to my back. It comes and goes. I don't have any burning when I pee. I don't know what's going on". Coronavirus screen: Vaccine status: Patient reports receiving the 2nd dose of the covid vaccine. Ebola Screen: No symptoms or risks identified at this time. Initial Sepsis Screen: Does the patient meet any 2 criteria? No. Patient's initial sepsis screen is negative. Does the patient have a suspected source of infection? No. Patient's initial sepsis screen is negative. Risk Assessment: Do you want to hurt yourself or someone else? Patient reports no desire to harm self or others. Onset of symptoms was October 31, 2022. 11:35 Method Of Arrival: Ambulatory 9 11:35 Acuity: HUI 3 mb9 Triage Assessment: 11:37 General: Appears in no apparent distress. Behavior is calm, cooperative. Pain: mb9 Complains of pain in pelvis Pain radiates to back Pain currently is 7 out of 10 on a pain scale. Quality of pain is described as aching, Pain began 2-3 days ago. Neuro: Ruby Agitation-Sedation Scale (RASS): 0 - Alert and Calm Level of Consciousness is awake, alert, obeys commands, Oriented to person, place, time, situation, Appropriate for age. Derm: Skin is pink, warm \\T\\ dry. [employer]: 11:37 LMP 10/2022 mb9 Historical: - Allergies: 11:37 PENICILLINS; mb9 - Home Meds: 11:37 None [Active]; mb9 - PMHx: 11:37 None; mb9 - PSHx: 11:37 Cholecystectomy; Ligation of fallopian tube; Tonsillectomy; section; mb9 - Immunization history:: Adult Immunizations up to date. - Social history:: Smoking status: Patient denies any tobacco usage or history of. Screenin:38 [facility] ED Fall Risk Assessment (Adult) History of falling in the last 3 months, me1 including since admission No falls in past 3 months (0 pts) Confusion or Disorientation No (0 pts) Intoxicated or Sedated No (0 pts) Impaired Gait No (0 pts) Mobility Assist Device Used No (0 pt) Altered Elimination No (0 pt) Score/Fall Risk Level 0 - 2 = Low Risk. Abuse screen: Denies threats or abuse. Nutritional screening: No deficits noted. Tuberculosis screening: No symptoms or risk factors identified. Assessment: 12:38 General: Appears uncomfortable, well groomed, well developed, well nourished, Behavior me1 is calm, cooperative, appropriate for age, Reports c/o RLQ pain that radiates to right lower back for the past 3 days. Pain is intermittent. Denies fever, feeling ill, fatigue, chills, Denies n/v/d and constipation. Pain: Complains of pain in right lower quadrant Pain radiates to right low back Pain currently is 7 out of 10 on a pain scale. Quality of pain is described as aching, Pain began 2-3 days ago. Is intermittent. Neuro: Level of Consciousness is awake, alert, obeys commands, Oriented to person, place, time, situation, Appropriate for age. Cardiovascular: Capillary refill < 3 seconds Patient's skin is warm and dry. Respiratory: Airway is patent Respiratory effort is even, unlabored, Respiratory pattern is regular, symmetrical. GI: Patient currently denies constipation, diarrhea, nausea, vomiting. : Denies burning with urination, urinary frequency, vaginal bleeding. Vital Signs: 11:35 BP 118 / 89; Pulse 96; Resp 18; Temp 97.3; Pulse Ox 100% on R/A; Weight 102.06 kg; mb9 Height 5 ft. 2 in. ; Pain 7/10; 12:38 BP 124 / 87; Pulse 87; Resp 18; Pulse Ox 100% on R/A; Pain 7/10; me1 14:37 BP 118 / 77; Pulse 84; Resp 18; Pulse Ox 100% on R/A; Pain 0/10; me1 11:35 Body Mass Index 41.15 (102.06 kg, 157.48 cm) mb9 11:35 Pain Scale: Adult mb9 12:38 Pain Scale: Adult me1 14:37 Pain Scale: Adult me1 ED Course: 11:12 Patient arrived in ED. mg5 11:25 Levon Waterman PA is PHCP. cp 11:25 Jacob Bernal MD is Attending Physician. cp 11:37 Triage completed. mb9 11:37 Arm band placed on. mb9 12:26 Shazia Del Cid, MENDEL is Primary Nurse. me1 12:38 Fall risk band placed. Bed in low position. Call light in reach. Side rails up X 1. me1 Provided Education on: POC. Verbalized understanding. . 12:38 No provider procedures requiring assistance completed. me1 13:00 Inserted saline lock: 22 gauge in right forearm, using aseptic technique. Blood ds4 collected. 13:42 CT Abd/Pelvis - IV Contrast Only In Process Unspecified. EDMS 14:08 Urinalysis w/ reflexes Sent. me1 14:08 Test, Urine Sent. me1 14:37 IV discontinued, intact, bleeding controlled, No redness/swelling at site. Pressure me1 dressing applied. Administered Medications: 13:25 Drug: Ondansetron IVP 4 mg Route: IVP; Site: right forearm; me1 14:09 Follow up: Response: No adverse reaction me1 13:26 Drug: NS 0.9% IV 1000 ml Route: IV; Rate: 1 bolus; Site: right forearm; me1 14:37 Follow up: IV Status: Completed infusion; IV Intake: 1000ml me1 13:26 Drug: TORadol - Ketorolac IVP 15 mg Route: IVP; Site: right forearm; me1 14:09 Follow up: Response: No adverse reaction; Pain is decreased me1 Medication: 12:38 VIS not applicable for this client. me1 Intake: 14:37 IV: 1000ml; Total: 1000ml. me1 Outcome: 14:33 Discharge ordered by . cp 14:47 Discharged to home ambulatory. me1 14:47 Condition: stable 14:47 Discharge instructions given to patient, Instructed on discharge instructions, follow up and referral plans. medication usage, Demonstrated understanding of instructions, follow-up care, medications, Prescriptions given X 1. 14:47 Patient left the ED. me1 Signatures: Dispatcher [employer] EDMS J Carlos Lockhart ds4 Levon Waterman PA PA cp Breneman, Mary Beth RN RN mb9 Shazia Del Cid RN RN me1 Jacqueline Cosby mg5 Corrections: (The following items were deleted from the chart) 11:37 11:37 PSHx: section; yesy mb9
--- NOTE | 2022-10-31 14:33 | EDPHYS ---
Physician Documentation [facility] Name: Ryanne Lockwood Age: 42 yrs Sex: Female : 1980 Arrival Date: 10/31/2022 Time: 11:08 Bed 9 Private MD: ED Physician Jacob Bernal HPI: 10/31 12:45 This 42 yrs old Female presents to ER via Ambulatory with complaints of Groin Pain. cp 12:45 The patient presents with abdominal pain right lower abdomen and right adnexa. cp 12:45 Onset: The symptoms/episode began/occurred 3 day(s) ago. The symptoms radiate to right cp back. Associated signs and symptoms: Pertinent negatives: constipation, diarrhea, dysuria, fever, vaginal discharge, vomiting, vaginal bleeding. The symptoms are described as intermittent, waxing/waning. Severity of pain: in the emergency department the pain has improved moderately. 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 - Social history:: Smoking status: Patient denies any tobacco usage or history of. ROS: 12:50 Constitutional: Negative for body aches, chills, fever, poor PO intake. cp 12:50 Eyes: Negative for injury, pain, redness, and discharge. cp 12:50 Cardiovascular: Negative for chest pain, palpitations. 12:50 Respiratory: Negative for cough, shortness of breath, wheezing. 12:50 Abdomen/GI: Positive for abdominal pain, of the right lower quadrant and right groin, Negative for diarrhea, constipation, anorexia, black/tarry stool, rectal bleeding. 12:50 Back: Positive for radiated pain, of the right low back. 12:50 : Negative for urinary symptoms, hematuria, flank pain, vaginal bleeding, vaginal discharge. 12:50 All other systems are negative. Exam: 12:55 Constitutional: The patient appears in no acute distress, alert, awake, non-toxic, well cp developed, well nourished, obese. 12:55 Head/Face: Normocephalic, atraumatic. cp 12:55 Eyes: Periorbital structures: appear normal, Conjunctiva: normal, no exudate, no injection, Sclera: no appreciated abnormality, Lids and lashes: appear normal, bilaterally. 12:55 ENT: External ear(s): are unremarkable, Nose: is normal, Mouth: Lips: moist, Oral mucosa: pink and intact, moist, Posterior pharynx: is normal, airway is patent, no erythema, no exudate. 12:55 Chest/axilla: Inspection: normal. 12:55 Cardiovascular: Rate: normal, Rhythm: regular. 12:55 Respiratory: the patient does not display signs of respiratory distress, Respirations: normal, no use of accessory muscles, no retractions, labored breathing, is not present, Breath sounds: are clear throughout, no decreased breath sounds, no stridor, no wheezing. 12:55 Abdomen/GI: Inspection: obese Bowel sounds: active, all quadrants, Palpation: soft, in all quadrants, mild abdominal tenderness, in the right lower quadrant, rebound tenderness, is not appreciated, involuntary guarding, is not appreciated. 12:55 Back: pain, that is mild, of the right low back, CVA tenderness, is absent. 12:55 Skin: no rash present. Vital Signs: 11:35 BP 118 / 89; Pulse 96; Resp 18; Temp 97.3; Pulse Ox 100% on R/A; Weight 102.06 kg; mb9 Height 5 ft. 2 in. ; Pain 7/10; 12:38 BP 124 / 87; Pulse 87; Resp 18; Pulse Ox 100% on R/A; Pain 7/10; me1 14:37 BP 118 / 77; Pulse 84; Resp 18; Pulse Ox 100% on R/A; Pain 0/10; me1 11:35 Body Mass Index 41.15 (102.06 kg, 157.48 cm) mb9 11:35 Pain Scale: Adult mb9 12:38 Pain Scale: Adult me1 14:37 Pain Scale: Adult me1 MDM: 11:51 Patient medically screened. cp 14:32 Data reviewed: vital signs, nurses notes. cp 14:32 Differential diagnosis: appendicitis, non-specific abd pain, Pyelonephritis, cp Ureterolithiasis, urinary tract infection. I considered the following discharge prescriptions or medication management in the emergency department Medications were administered in the Emergency Department. See MAR. Counseling: I had a detailed discussion with the patient and/or guardian regarding the historical points, exam findings, and any diagnostic results supporting the discharge/admit diagnosis, lab results, radiology results, to return to the emergency department if symptoms worsen or persist or if there are any questions or concerns that arise at home. Response to treatment: the patient's symptoms have markedly improved after treatment. Special discussion: Based on the patient's Hx, exam, and Dx evaluation, there is no indication for emergent surgery or inpatient Tx. It is understood by the patient/guardian that if the Sx's persist or worsen they need to return immediately for re-evaluation. 10/31 12:34 Order name: CBC with Diff; Complete Time: 13:56 cp 10/31 13:56 Interpretation: Normal except: RDW 15.5. cp 10/31 12:34 Order name: CMP; Complete Time: 13:56 cp 10/31 13:56 Interpretation: Normal except: CL 108; AST 7; GLOB 3.9; A/G 0.9. cp 10/31 12:34 Order name: Lipase; Complete Time: 13:56 cp 10/31 12:34 Order name: Test, Urine; Complete Time: 14:32 cp 10/31 12:34 Order name: Urinalysis w/ reflexes; Complete Time: 14:32 cp 10/31 12:34 Order name: CT Abd/Pelvis - IV Contrast Only; Complete Time: 13:56 cp 10/31 12:34 Order name: IV Saline Lock; Complete Time: 13:00 cp 10/31 12:34 Order name: Labs collected and sent; Complete Time: 13:00 cp Administered Medications: 13:25 Drug: Ondansetron IVP 4 mg Route: IVP; Site: right forearm; me1 14:09 Follow up: Response: No adverse reaction me1 13:26 Drug: NS 0.9% IV 1000 ml Route: IV; Rate: 1 bolus; Site: right forearm; me1 14:37 Follow up: IV Status: Completed infusion; IV Intake: 1000ml me1 13:26 Drug: TORadol - Ketorolac IVP 15 mg Route: IVP; Site: right forearm; me1 14:09 Follow up: Response: No adverse reaction; Pain is decreased me1 Disposition Summary: 10/31/22 14:33 Discharge Ordered Location: Home cp Problem: new cp Symptoms: have improved cp Condition: Stable cp Diagnosis - Lower abdominal pain, unspecified cp Followup: cp - With: Private Physician - When: 2 - 3 days - Reason: Recheck today's complaints Discharge Instructions: - Discharge Summary Sheet cp - Abdominal Pain, Adult cp Forms: - Medication Reconciliation Form cp - Thank You Letter cp - Antibiotic Education cp - Prescription Opioid Use cp - Patient Portal Instructions cp - Leadership Thank You Letter cp Prescriptions: - Ibuprofen 800 mg Oral Tablet - take 1 tablet by ORAL route every 8 hours As needed take with food; 30 tablet; cp Refills: 0, Product Selection Permitted Signatures: Dispatcher [employer] EDMS Levon Waterman PA PA cp Breneman, Mary Beth RN RN mb9 Shazia Del Cid RN RN me1 Corrections: (The following items were deleted from the chart) 11:37 11:37 PSHx: section; yesy mb9
[2022-10-31 14:53] VITALS: TEMP 97.3; O2SAT 100
[2022-10-31 14:56] VITALS: BP 118/77
== END 2022-10-31 14:47 | disposition home or self-care (01) ==
LOC: ER 11:08
DX: R10.31 Right lower quadrant pain (principal); Z88.0 Allergy status to penicillin
CPT/HCPCS: 96361; 85025; 81001; 36415; 81025; 83690; 80053; 74177; 96375; 96374; 99284; Q9967; J2405; J7030